=== PATIENT | male | born 1980 | race African-American/Black ===

== ENCOUNTER 2018-05-11 23:28 | Emergency (ER) | payer OTHER ==
[~2018-05-11] VITALS: Ht 180.3 cm; Wt 94.7 kg
[~2018-05-11 23:28] MED LIST: LEVAQUIN750 MG PO
[2018-05-11 23:55] LABS: HEMATOCRIT 42.9 % (38.0-50.0); HEMOGLOBIN 14.6 G/DL (12.5-16.6); MCV 91.1 FL (86-99); PLATELET COUNT 334 K/uL (156-360); RBC DIS.WIDTH-SD 40.3 % (39-53); RED BLOOD COUNT 4.71 M/uL (4.00-5.50); WHITE BLOOD COUNT 9.7 K/uL (4.1-10.2)
[2018-05-12 00:05] LABS: CHLORIDE 102 mEq/L (99-109); POTASSIUM 3.6 mEq/L (3.7-5.4); SODIUM 141 mEq/L (136-147)
[2018-05-12 00:06] LABS: GLUCOSE 106 mg/dL (70-99)
[2018-05-12 00:10] LABS: GFR ESTIMATE (CALCULATED) > 59 mL/min/ (58.99-99999)
[2018-05-12 00:11] LABS: UREA NITROGEN (BUN) 13 mg/dL (9-23)
[2018-05-12 00:17] LABS: TROP-I INTERPRETATION NEGATIVE; TROPONIN-I < 0.01 ng/mL (0.0-0.30)
[2018-05-12 02:42] VITALS: BP 165/99
== END 2018-05-12 02:43 | disposition home or self-care (01) ==
LOC: EME 23:28
DX: R07.9 Chest pain, unspecified (principal)
CPT/HCPCS: 71046; 80048; 84484; 85027; 93005; 99281; 99284